=== PATIENT | male | born 1945 | race Caucasian/White ===

== ENCOUNTER → 2016-09-06 | Outpatient (CLI) | payer OTHER ==
--- NOTE | 2016-09-07 10:24 | KCIC ---
PROCEDURE MR of the left shoulder HISTORY Left shoulder pain for 1 year. No known injury. TECHNIQUE Routine multiplanar sequences are obtained. COMPARISON None FINDINGS Moderate to severe motion degradation despite attempts at repeating images. The acromioclavicular joint is mildly degenerative. Mild fluid within the joint. Mild widening of the joint, 10 mm. Complete full-thickness supraspinatus and infraspinatus tendon rupture. Retraction, measures about 25 mm. Severe muscle atrophy with volume loss and fatty infiltration. High-grade subscapularis tendon tear. Humerus is high-riding, contacting the undersurface of the acromion. At least mild glenohumeral joint primary osteoarthritis with chondromalacia. Limited labrum evaluation due to the motion. At least degenerative signal within the superior labrum. No obvious labral detachment. Biceps tendon poorly seen. No bone lesion. No acute fracture. No acute soft tissue injury. IMPRESSION 1. Massive rotator cuff tear with retraction and severe muscle atrophy. 2. Primary osteoarthritis. 3. At least degeneration of the superior labrum. 4. Nonvisualized biceps tendon, suspect proximal rupture. Electronically signed by: Luis Arreguin MD (September 07, 2016 10:23:38)
== END | disposition home or self-care (01) ==
LOC: KCIC MRI 09:45
PROVIDERS: ATTEND Internal Medicine
DX: M19.012 Primary osteoarthritis, left shoulder (principal)
CPT/HCPCS: 73221